=== PATIENT | male | born 1980 | race Caucasian/White ===

== ENCOUNTER 2024-04-17 08:01 | Emergency (ER) | payer OTHER ==
[~2024-04-17] VITALS: Ht 177.8 cm; Wt 85.5 kg
[2024-04-17 08:02] VITALS: TEMP 97.1
[2024-04-17 08:38] LABS: BILIRUBIN,URINE NEGATIVE (Neg); CLARITY,URINE CLOUDY (Clear); COLOR,URINE YELLOW (Yellow); GLUCOSE, URINE NEGATIVE (Neg); KETONES,URINE NEGATIVE (Neg); LEUKOCYTE ESTERASE ,URINE NEGATIVE (Neg); NITRITES, URINE NEGATIVE (Neg); OCCULT BLOOD,URINE LARGE (Neg); PH,URINE 5.5 (4.8-8.0); PROTEIN,URINE TRACE mg/dl (Neg); UROBILINOGEN,URINE 0.2 E.U/dL (0.2-1.0)
[2024-04-17] MEDS: normal saline 1000ML IV soln IVB ONE (08:40)
[2024-04-17 08:41] LABS: BASOPHILS # (AUTO) 0.1 X10'3 (0-0.2); BASOPHILS % (AUTO) 0.7 % (0-1); EOSINOPHILS # (AUTO) 0.3 X10'3 (0-0.9); EOSINOPHILS % (AUTO) 2.5 % (0-6); HEMATOCRIT 39.3 % (42.0-52.0); HEMOGLOBIN 13.3 g/dl (14.0-17.9); LYMPHOCYTES # (AUTO) 1.1 X10'3 (1.1-4.8); LYMPHOCYTES % (AUTO) 8.7 % (21-51); MEAN CORPUSCULAR HEMOGLOBIN 32.6 PG (27.0-31.0); MEAN CORPUSCULAR HGB CONC 33.9 g/dL (33.0-36.5); MEAN CORPUSCULAR VOLUME 96.3 FL (78-98); MEAN PLATELET VOLUME 7.4 FL (7.4-10.4); MONOCYTES % (AUTO) 8.4 % (2-12); NEUTROPHILS # (AUTO) 9.7 X10'3 (1.8-7.7); NEUTROPHILS % (AUTO) 79.7 % (42-75); PLATELET COUNT 250 X10'3 (140-440); RED BLOOD COUNT 4.08 X10'6 (4.70-6.10); RED CELL DISTRIBUTION WIDTH 16.8 % (11.5-14.5); WHITE BLOOD COUNT 12.1 X10'3 (4.5-11.0)
[2024-04-17] MEDS: ketorolac trometh 15mg/ml vial 15 MG/ML ML IV ONE (08:41)
[2024-04-17 08:46] LABS: SQUAMOUS EPITHELIAL CELL,UR FEW /LPF (FEW); UA COLLECTION TYPE CLN CATCH MIDSTREAM
[2024-04-17 08:47] LABS: RBC,URINE TNTC /HPF (0-2)
[2024-04-17 08:48] LABS: BACTERIA,URINE FEW /HPF (Neg)
[2024-04-17 08:49] LABS: WBC,URINE 0-4 /HPF (0-4)
[2024-04-17 09:04] LABS: ALANINE AMINOTRANSFERASE 27 U/L (12-78); ALBUMIN 4.2 G/DL (3.4-5.0); ALBUMIN/GLOBULIN RATIO 1.4 (1.1-1.5); ALKALINE PHOSPHATASE 43 IU/L (46-116); ANION GAP 11 (8-16); ASPARTATE AMINO TRANSFERASE 13 U/L (10-37); BILIRUBIN,TOTAL 0.4 MG/DL (0.1-1.0); BLOOD UREA NITROGEN 25 MG/DL (7-18); CHLORIDE 104 MMOL/L (99-107); CREATININE 1.19 MG/DL (0.60-1.10); GLUCOSE 146 MG/DL (70-104); LIPASE 46 U/L (16-77); POTASSIUM 3.2 MMOL/L (3.5-5.1); SODIUM 140 MMOL/L (135-145); TOTAL PROTEIN 7.1 G/DL (6.4-8.2); eCRCL 81 ML/MIN; eGFR 66 ML/MIN
[2024-04-17] MEDS ORDERED: FLO0.4C PO (09:14)
[2024-04-17] MEDS ORDERED: ONDA-243 PO (09:14)
[2024-04-17] MEDS ORDERED: HYDR-3973 PO (09:14)
[2024-04-17] MEDS: HYDROcodone/acetaminophen 10/325mg tab PO ONE (10:02)
[2024-04-17 10:06] VITALS: BP 121/76; PULSE 68; RESP 18; O2SAT 99
== END 2024-04-17 10:08 | disposition home or self-care (01) ==
LOC: ER 08:01
DX: N20.0 Calculus of kidney (principal); F17.210 Nicotine dependence, cigarettes, uncomplicated; Z79.899 Other long term (current) drug therapy
CPT/HCPCS: 36415; 74176; 80053; 81001; 83690; 84145; 85025; 96361; 96374; 99285; J1885; J7030

== ENCOUNTER 2024-06-06 09:07 | Emergency (ER) | payer OTHER ==
[~2024-06-06] VITALS: Ht 177.8 cm; Wt 88.2 kg
[~2024-06-06 09:07] MED LIST: ONDA-243 PO
[2024-06-06 09:51] VITALS: BP 132/85; PULSE 89; RESP 16; O2SAT 98
[2024-06-06 10:16] VITALS: TEMP 98.4
== END 2024-06-06 10:18 | disposition home or self-care (01) ==
LOC: ER 09:08
DX: L03.116 Cellulitis of left lower limb (principal)
CPT/HCPCS: 93971; 99284